=== PATIENT | female | born 1950 | race Caucasian/White ===

== ENCOUNTER → 2017-06-09 | Outpatient (CLI) | payer MEDICARE, MEDICAID | END | disposition home or self-care (01) | LOC: WOU 08:30 | PROVIDERS: ATTEND Specialist | DX: L89.894 Pressure ulcer of other site, stage 4 (principal); M86.671 Other chronic osteomyelitis, right ankle and foot; H34.8120 Central retinal vein occlusion, left eye, with macular edema; M05.60 Rheumatoid arthritis of unspecified site with involvement of other organs and systems; Z87.891 Personal history of nicotine dependence | CPT/HCPCS: 11043; 87070; 87075; 87186; A6209; A6402 ==

== ENCOUNTER 2017-06-10 12:15 | Outpatient (CLI) | payer MEDICARE, MEDICAID | END 2017-06-10 23:59 | disposition home or self-care (01) | LOC: RAD 12:15 | PROVIDERS: ATTEND Specialist | DX: M21.071 Valgus deformity, not elsewhere classified, right ankle (principal); M20.091 Other deformity of right finger(s); M21.611 Bunion of right foot; M20.11 Hallux valgus (acquired), right foot; M19.071 Primary osteoarthritis, right ankle and foot; M86.8X7 Other osteomyelitis, ankle and foot; M85.88 Other specified disorders of bone density and structure, other site | CPT/HCPCS: 73630-TC ==

== ENCOUNTER 2017-06-17 13:40 | Outpatient (CLI) | payer MEDICARE, MEDICAID | END 2017-06-17 23:59 | disposition home or self-care (01) | LOC: WOU 13:40 | PROVIDERS: ATTEND Specialist | DX: L89.894 Pressure ulcer of other site, stage 4 (principal); S51.001A Unspecified open wound of right elbow, initial encounter; X58.XXXA Exposure to other specified factors, initial encounter; Y92.89 Other specified places as the place of occurrence of the external cause; M05.60 Rheumatoid arthritis of unspecified site with involvement of other organs and systems; M86.671 Other chronic osteomyelitis, right ankle and foot; Z87.891 Personal history of nicotine dependence; Z88.0 Allergy status to penicillin; H34.8190 Central retinal vein occlusion, unspecified eye, with macular edema | CPT/HCPCS: 11043; A6209; A6402 ==

== ENCOUNTER 2017-06-24 12:20 | Outpatient (CLI) | payer MEDICARE, OTHER | END 2017-06-24 23:59 | disposition home or self-care (01) | LOC: CARD 12:20 | PROVIDERS: ATTEND Specialist | DX: H53.132 Sudden visual loss, left eye (principal) | CPT/HCPCS: 93880-TC ==

== ENCOUNTER 2017-06-24 13:18 | Outpatient (CLI) | payer MEDICARE, MEDICAID | END 2017-06-24 23:59 | disposition home or self-care (01) | LOC: WOU 13:18 | PROVIDERS: ATTEND Specialist | DX: M86.671 Other chronic osteomyelitis, right ankle and foot (principal); L89.894 Pressure ulcer of other site, stage 4; I87.312 Chronic venous hypertension (idiopathic) with ulcer of left lower extremity; M05.60 Rheumatoid arthritis of unspecified site with involvement of other organs and systems; L89.893 Pressure ulcer of other site, stage 3; Z88.0 Allergy status to penicillin; Z87.891 Personal history of nicotine dependence; L97.821 Non-pressure chronic ulcer of other part of left lower leg limited to breakdown of skin | CPT/HCPCS: A6209; A6402; A6452; G0463 ==